=== PATIENT | male | born 1995 | race African-American/Black ===

== ENCOUNTER 2016-12-05 17:27 | Emergency (ER) | payer MEDICAID, OTHER ==
[~2016-12-05] VITALS: Ht 165.1 cm; Wt 63.5 kg
[2016-12-05 17:40] VITALS: BP 115/73
[2016-12-05] MEDS ORDERED: Tylenol #4 Tab (300mg/60mg) ORAL ONE (18:00)
[2016-12-05] MEDS ORDERED: IBUPROFEN600 MG ORAL (18:35)
--- NOTE | 2016-12-05 18:36 | Emergency Room Report ---
History of Present Illness General Chief Complaint: Upper Extremity Injury Source: Patient Present Illness HPI 21 y/o male c/o left shoulder pain x 1 hour. States he was at a restaurant with his family when a heat lamp fell on him landing on his left shoulder. States he has left shoulder pain that is worse with movement and better with keeping in guarded position. Has not taken any medications. Patient denies any numbness, tingling, pressure, paralysis, cyanosis, bruising, loss of sensation, or loss of range of motion. Allergies: Coded Allergies: No Known Allergies (Unverified , 12/05/16) Patient History Past Medical History: see triage record Past Surgical History: none Pertinent Family History: none Immunizations: UTD Reviewed Nursing Documentation: PMH: Agreed, PSxH: Agreed Nursing Documentation-PMH Past Medical History: No Stated History Review of Systems All Other Systems: negative except mentioned in HPI Physical Exam Vital Signs Date Time Temp Pulse Resp B/P Pulse Ox O2 Delivery O2 Flow Rate FiO2 12/05/16 17:40 98.4 82 18 115/73 98 Room Air Sp02 EP Interpretation: reviewed, normal General Appearance: no apparent distress, alert, GCS 15, non-toxic Head: normocephalic, atraumatic Eyes: bilateral eye PERRL, bilateral eye normal inspection ENT: hearing grossly normal, normal pharynx, no angioedema, normal voice Neck: full range of motion, supple, supple/symm/no masses Respiratory: chest non-tender, lungs clear, normal breath sounds, speaking full sentences Cardiovascular #1: regular rate, rhythm, no edema Cardiovascular #2: 2+ radial (R), 2+ radial (L) Musculoskeletal: back normal, gait/station normal, normal range of motion, other - + Neers, +Empty Can, Neg Sulcus, +Crossover, tender - Left anterior shoulder and along left clavicle near AC junction Reflexes: 2+ bicep (L), 2+ tricep (L) Skin: normal color, no rash, warm/dry, well hydrated Lymphatic: no adenopathy Medical Decision Making PA Attestation Dr. Reed is my supervising physician with whom patient management has been discussed with. Diagnostic Impression: Primary Impression: Injury of left upper extremity Qualified Codes: S49.92XA - Unspecified injury of left shoulder and upper arm , initial encounter Additional Impression: Left shoulder pain Qualified Codes: M25.512 - Pain in left shoulder ER Course Pt. presents to the ED c/o left shoulder pain Ddx considered but are not limited to fracture, contusion, dislocation, sprain, strain Vital signs: are WNL, pt. is afebrile H&PE are most consistent with left shoulder pain due to trauma ORDERS: XR clavicle, XR Left Shoulder ED INTERVENTIONS: Ibuprofen. DISCHARGE: At this time pt. is stable for d/c to home. Will provide printed patient care instructions, and any necessary prescriptions. Care plan and follow up instructions have been discussed with the patient prior to discharge. Other X-Ray Diagnostic Results Other X-Ray Diagnostic Results : X-Ray Ordered: XR LEft Shoulder & Clavicle Date: December 05, 2016 EP Interpretation: Yes Findings: no fractures, no dislocation, no soft tissue swelling Number of Views: 3 Last Vital Signs Date Time Temp Pulse Resp B/P Pulse Ox O2 Delivery O2 Flow Rate FiO2 12/05/16 17:40 98.4 82 18 115/73 98 Room Air Disposition: HOME, SELF-CARE Condition: Stable Scripts Ibuprofen* (MOTRIN*) 600 Mg Tablet 800 MG ORAL Q8H Y for For Pain, #30 TAB 0 Refills Prov: NELDA ADAMS 12/05/16 Patient Instructions: Generic Shoulder Exercises-SportsMed NELDA ADAMS December 05, 2016 18:36
[2016-12-05 18:45] VITALS: BP 115/73
--- NOTE | 2016-12-06 11:07 | Diagnostic Imaging Report ---
Indication: Pain Findings: 3 views of the left shoulder were obtained. Alignment of the left shoulder is normal. No acute fracture is identified. Soft tissues are unremarkable. Impression: Negative left shoulder examination
--- NOTE | 2016-12-06 11:07 | Diagnostic Imaging Report ---
Indication: Pain Comparison: None Findings: 2 view left clavicle obtained. No acute fracture is identified. Soft tissues are unremarkable. Impression: Negative exam of the left clavicle
== END 2016-12-05 18:45 | disposition home or self-care (01) ==
LOC: EMR 18:40
DX: S49.92XA Unspecified injury of left shoulder and upper arm, initial encounter (principal); M25.512 Pain in left shoulder; W22.8XXA Striking against or struck by other objects, initial encounter; Y93.9 Activity, unspecified; Y92.511 Restaurant or cafe as the place of occurrence of the external cause
CPT/HCPCS: 99283